=== PATIENT | female | born 1960 | race African-American/Black ===

== ENCOUNTER 2022-02-04 14:49 | Emergency (ER) | payer OTHER, SELFPAY ==
--- NOTE | ~2022-02-04 | XR_ITS ---
XR shoulder RT min 2V DATE: 02/04/2022 15:20 INDICATION: Fall on to right shoulder today. Right shoulder pain TECHNIQUE: 4 views COMPARISON: None FINDINGS: No recent fracture or dislocation is detected. Normal alignment at the acromioclavicular an d glenohumeral joints. No abnormal soft tissue calcification is noted. IMPRESSION: No fracture or dislocation of the right shoulder Reviewed, dictated and finalized at location B.
--- NOTE | 2022-02-04 14:55 | ED.UPPEXIN ---
HPI - Extremity Injury (Upper) General Chief Complaint: Extremity Injury, Upper Stated Complaint: R SHOULDER INJURY Time Seen by Provider: 02/04/22 14:56 Source: patient and RN notes reviewed History of Present Illness HPI narrative: Patient is a 61-year-old female who presents the urgent care with complaints of right shoulder pain. Patient states that she has chronic right shoulder pain and had x-rays completed with her orthopedic on Friday and was told that she has [id number] and some issues with the rotator cuff . Patient states that she did not take anything for pain status post fall at 1 PM today. Patient fell onto the concrete in a parking lot full of rocks. Patient denies of any other injuries from the fall. Denies hitting her head or any loss of consciousness. No other acute complaints. No acute distress noted. Patient aware of the plan of care. Some parts of this dictation were generated by voice recognition software and may contain typographical and/or grammatical inaccuracies. Related Data Allergies Allergy/AdvReac Type Severity Reaction Status Date / Time doxycycline AdvReac Itching Verified 02/04/22 15:36 Review of Systems Review of Systems: CONSTITUTIONAL: Denies fever, chills, or sweats. EYES: Denies visual changes, redness, or discharge. ENT: Denies rhinorrhea, congestion, sore throat, or otalgia. CARDIOVASCULAR: Denies chest pain, palpitations, or edema. RESPIRATORY: Denies cough or dyspnea. GASTROINTESTINAL: Denies abdominal pain, nausea, vomiting, or diarrhea. GENITOURINARY: Denies dysuria or hematuria. SKIN: Denies rash or itching. MUSCULOSKELETAL: Reports of right shoulder pain NEUROLOGIC: Denies headache, numbness, or weakness. All other systems reviewed are negative, except as documented in HPI. PMFSH Comments At the time of my signature, I reviewed and agree with the nursing past medical, surgical, social, and family history. There is no relevant family history pertinent to the patient complaint. Exam Narrative: GENERAL: This is a well-nourished, well-developed patient, in no apparent distress. HEAD: normocephalic, atraumatic. EYES: PERRL. Sclera clear/white. Vision is grossly intact. EARS: External ears normal NOSE: External nose normal with no obvious nasal discharge, nares without redness, no rhinorrhea. THROAT: Mucous membranes moist NECK: Neck supple CARDIOVASCULAR: Regular rate and rhythm without murmurs, gallops, or rubs. SKIN: warm, intact with no suspicious lesions or rash, good texture and turgor. NEURO: awake, alert, and oriented to person, place and time. There were no obvious focal neurologic abnormalities. EXTREMITIES: Moderate anterior, posterior and lateral right shoulder tenderness. Range of motion limited due to pain. No obvious dislocation to the upper right extremity. Positive strong right radial pulse with capillary refill less than 2 seconds. Course Course Level of Care: Express Care Visit Vital Signs Vital signs: Vital Signs Temperature 99.1 F 02/04/22 15:00 Pulse Rate 78 02/04/22 15:00 Respiratory Rate 16 02/04/22 15:00 Blood Pressure 155/94 H 02/04/22 15:00 Pulse Oximetry 100 02/04/22 15:00 Oxygen Delivery Room Air 02/04/22 15:00 Temperature 99.1 F 02/04/22 15:00 Pulse Rate 78 02/04/22 15:00 Respiratory Rate 16 02/04/22 15:00 Blood Pressure 155/94 H 02/04/22 15:00 Pulse Oximetry 100 02/04/22 15:00 Oxygen Delivery Room Air 02/04/22 15:00 Reviewed-patient is informed that they may have pre-hypertension or hypertension based on a blood pressure reading in the department. I recommend the patient call the primary care provider listed on their discharge instructions or a physician of their choice this week to arrange follow-up for further evaluation of possible pre-hypertension or hypertension. MDM - Extremity Injury (Upper) MDM Narrative Medical decision making narrative: Reviewed x-ray results with the patient. She i
[2022-02-04 15:00] VITALS: BP 155/94; PULSE 78; RESP 16; TEMP 37.3; O2SAT 100
== END 2022-02-04 15:43 | disposition home or self-care (01) ==
PROVIDERS: Emergency Provider Nurse Practitioner Family; PCP Orthopaedic Surgery Hand Surgery
DX: S40.011A Contusion of right shoulder, initial encounter (principal); W19.XXXA Unspecified fall, initial encounter; E78.00 Pure hypercholesterolemia, unspecified; I10 Essential (primary) hypertension; E11.9 Type 2 diabetes mellitus without complications
CPT/HCPCS: 73030; 99213; G0463